=== PATIENT | male | born 1965 | race Caucasian/White ===

== ENCOUNTER 2024-06-06 21:07 | Emergency (ER) | payer BC, MEDICAID, MEDICARE, OTHER ==
[~2024-06-06] VITALS: Ht 182.9 cm; Wt 91.0 kg
[2024-06-06 21:22] VITALS: O2SAT 97
[2024-06-06 22:00] VITALS: TEMP 36.61404
[2024-06-06] MEDS: KETOROLAC 30MG/ML VIAL IV STA (22:17)
[2024-06-07] MEDS ORDERED: NAPR500T7 MT (02:05)
[2024-06-07 03:00] VITALS: BP 145/81; PULSE 58; RESP 16; O2SAT 98
== END 2024-06-07 03:32 | disposition home or self-care (01) ==
LOC: ER 21:07
DX: M79.18 Myalgia, other site (principal); R51.9 Headache, unspecified; M25.561 Pain in right knee; M25.562 Pain in left knee; I10 Essential (primary) hypertension; E78.00 Pure hypercholesterolemia, unspecified; Z79.1 Long term (current) use of non-steroidal anti-inflammatories (NSAID); Z98.890 Other specified postprocedural states; V49.49XA Driver injured in collision with other motor vehicles in traffic accident, initial encounter; Y93.89 Activity, other specified; Y92.89 Other specified places as the place of occurrence of the external cause; Y99.8 Other external cause status
CPT/HCPCS: 99285; 70450; 96374; 73030; 73130; 73562; 72125; 71250; 74176; 93005; J1885